=== PATIENT | female | born 1955 | race Caucasian/White ===

== ENCOUNTER 2019-08-17 16:31 | Emergency (ER) | payer SELFPAY ==
[~2019-08-17] VITALS: Ht 157.5 cm; Wt 52.3 kg
[2019-08-17] MEDS ORDERED: ALPR0.5T8 PO (16:47)
[2019-08-17] MEDS ORDERED: MECL-160 PO (16:47)
[2019-08-17] MEDS ORDERED: ONDA-104 PO (16:47)
[2019-08-17] MEDS ORDERED: IBUP-2271 PO (16:47)
[2019-08-17] MEDS ORDERED: OXYM30MI NS (16:47)
[2019-08-17] MEDS ORDERED: HYDROCODONE/ACETAMINOPHEN 5-325 MG TABLET PO ONE (19:15)
[2019-08-17] MEDS ORDERED: KETOROLAC TROMETHAMINE 30 MG/ML VIAL IM ONE (19:15)
[2019-08-17 20:00] VITALS: BP 138/71
== END 2019-08-17 20:50 | disposition home or self-care (01) ==
LOC: EMS 16:34
DX: G89.29 Other chronic pain (principal); M54.5 Low back pain; F41.9 Anxiety disorder, unspecified; Z79.899 Other long term (current) drug therapy
CPT/HCPCS: 72100; J1885